=== PATIENT | female | born 1940 | race African-American/Black ===

== ENCOUNTER 2018-10-27 14:32 | Emergency (ER) | payer MEDICARE, MEDICAID ==
[~2018-10-27] VITALS: Ht 167.6 cm; Wt 73.0 kg
[~2018-10-27 14:32] MED LIST: ACET-2128 PO; AMLO5TAB4 PO; ASCO100T12 PO; DICL50TA9 PO; DOCU-150 PO; FURO20TA4 PO; LORA10TA7 PO; LOSA1TAB40 PO; TRAM50TA3 PO
[2018-10-27 14:46] VITALS: BP 129/59
[2018-10-27] MEDS ORDERED: APIX2.5T PO (14:56)
[2018-10-27 16:03] LABS: CHLORIDE 110 mEq/L (98-107)
[2018-10-27 16:04] LABS: BASOPHILS % 0.8 % (0.0-2.0); EOSINOPHILS % 4.8 % (0.0-5.0); HEMATOCRIT. 27.5 % (36.0-48.0); MEAN CORPUSCULAR HEMOGLOBIN 27.7 pg (28.0-32.0); MEAN CORPUSCULAR VOLUME 84.2 fL (81.0-99.0); MEAN PLATELET VOLUME 7.7 fl (7.4-10.4); MONOCYTES % 14.8 % (2.0-8.0); NEUTROPHILS % 40.6 % (40.0-76.0); PLATELET 188 x1000/uL (130-400); RED BLOOD CELL COUNT 3.26 mill/uL (4.2-5.4); RED CELL DISTRIBUTION WIDTH 18.2 % (11.6-14.6)
[2018-10-27 16:33] LABS: INR 1.2; PROTHROMBIN TIME 12.3 sec (9.6-11.0)
== END 2018-10-27 17:14 | disposition home or self-care (01) ==
LOC: ER 16:40
DX: R04.0 Epistaxis (principal); D64.9 Anemia, unspecified; F17.200 Nicotine dependence, unspecified, uncomplicated; I11.0 Hypertensive heart disease with heart failure; I50.9 Heart failure, unspecified; Z90.710 Acquired absence of both cervix and uterus; Z98.890 Other specified postprocedural states; Z79.899 Other long term (current) drug therapy; Z88.0 Allergy status to penicillin
CPT/HCPCS: 36415; 99283

== ENCOUNTER 2019-05-23 11:04 | Emergency (ER) | payer MEDICARE, MEDICAID ==
[~2019-05-23] VITALS: Ht 165.1 cm; Wt 77.0 kg
[~2019-05-23 11:04] MED LIST changes: +APIX2.5T PO
[2019-05-23 11:40] VITALS: BP 119/53
== END 2019-05-23 14:26 | disposition home or self-care (01) ==
LOC: ER 11:04
DX: L03.011 Cellulitis of right finger (principal)
CPT/HCPCS: 73130; 99283